=== PATIENT | male | born 1945 | race Caucasian/White ===

== ENCOUNTER 2018-10-05 23:00 | Emergency (ER) | payer SELFPAY, MEDICAID, MEDICARE | END 2018-10-05 23:30 | disposition left against medical advice (07) | LOC: E/R 23:00 | DX: Z53.21 Procedure and treatment not carried out due to patient leaving prior to being seen by health care provider (principal) ==

== ENCOUNTER 2018-11-20 11:46 | Inpatient (IN) | payer MEDICARE, MEDICAID ==
[2018-11-20 12:42] LABS: ADD MAN DIFF? NO
[2018-11-20 12:44] LABS: WHITE BLOOD COUNT 14.2 10^3/ul (4.8-10.8)
[2018-11-20 12:44] LABS: ABNORMAL IP MESSAGE 1; EOSINOPHILS # 0.1 10^3/ul (0.0-0.5); EOSINOPHILS % 0.5 % (0.0-7.0); HEMATOCRIT 33.2 % (42.0-52.0); HEMOGLOBIN 11.8 g/dl (14.0-18.0); LYMPHOCYTES # 1.5 10^3/ul (0.8-2.9); LYMPHOCYTES % 10.8 % (15.0-51.0); MEAN CORPUSCULAR HEMOGLOBIN 32.2 pg (29.0-33.0); MEAN CORPUSCULAR HGB CONC 35.5 g/dl (32.0-37.0); MEAN CORPUSCULAR VOLUME 90.5 fl (82.0-101.0); MEAN PLATELET VOLUME 10.2 fl (7.4-10.4); MONOCYTE # 1.2 10^3/ul (0.3-0.9); MONOCYTES % 8.2 % (0.0-11.0); NEUTROPHIL # 9.9 10^3/ul (1.6-7.5); NEUTROPHILS % 69.7 % (39.0-77.0); PLATELET COUNT 349 10^3/UL (140-415); POSITIVE DIFF @See below; RED BLOOD COUNT 3.67 10^6/ul (4.70-6.10); RED CELL DISTRIBUTION WIDTH 14.6 % (11.5-14.5)
[2018-11-20 12:53] LABS: HEMOGLOBIN A1C 6.1 % (0-5.9)
[2018-11-20] MEDS ORDERED: ACETAMINOPHEN 325 MG TAB PO ×2 (13:00→14:00)
[2018-11-20] MEDS ORDERED: ONDANSETRON 4 MG INJ IV ×2 (13:00→14:00)
[2018-11-20] MEDS ORDERED: ASPIRIN 325 MG TAB PO (13:00)
[2018-11-20 13:03] LABS: INR 1.07; PT RATIO 1.1
[2018-11-20 13:04] LABS: PARTIAL THROMBOPLASTIN TIME 26.8 Sec (23.0-35.0)
[2018-11-20 13:09] LABS: ANION GAP 11 (5-13); BLOOD UREA NITROGEN 84 mg/dl (7-20); CALCIUM 8.8 mg/dl (8.4-10.2); CARBON DIOXIDE 24 mmol/L (21-31); CHLORIDE 94 mmol/L (97-110); CHOLESTEROL 99 mg/dl (100-200); CREATININE 5.11 mg/dl (0.61-1.24); GLUCOSE 125 mg/dl (70-220); HDL CHOLESTEROL 14 mg/dl (31-75); LDL CHOLESTEROL,CALCULATED 49 mg/dl; SODIUM 129 mmol/L (135-144); TRIGLYCERIDES 180 mg/dl (0-149)
[2018-11-20 13:21] LABS: TROPONIN-I 0.025 ng/ml (0.000-0.120)
[2018-11-20] MEDS ORDERED: DEXTROSE 5%-0.45% NACL 1,000 ML IV (13:45)
[2018-11-20] MEDS: ASPIRIN 300 MG SUPP PR (13:52)
[2018-11-20] MEDS ORDERED: NACL 0.9% 3 ML SYG IV (14:00)
[2018-11-20 14:08] LABS: ANISOCYTOSIS 1+ (0-0); BAND NEUTROPHILS #M 0.2 10^3/ul (0.0-0.6); BAND NEUTROPHILS % (M) 2 % (0-4); LYMPHOCYTES #M 1.5 10^3/ul (0.8-2.9); LYMPHOCYTES % (M) 11 % (15-51); MONOCYTE #M 1.4 10^3/ul (0.3-0.9); MONOCYTES % (M) 10 % (0-11); MYELOCYTES #M 0.2 10^3/ul (0.0-0.0); MYELOCYTES % (M) 2 % (0-0); PLATELET ESTIMATE NORMAL; PROMYELOCYTES #M 0.1 10^3/ul (0-0); PROMYELOCYTES % (M) 1 % (0-0); REACTIVE LYMPHOCYTES #M 0.4 10^3/ul (0.0-0.0); REACTIVE LYMPHOCYTES% (M) 3 % (0-0); SEG NEUT #M 10.1 10^3/ul (1.6-7.5); SEGMENTED NEUTROPHILS (M) % 71 % (39-77); SMUDGE%M 46 % (0-0)
[2018-11-20 14:14] LABS: ADD UMIC YES; UR ASCORBIC ACID NEGATIVE (NEGATIVE); UR BACTERIA FEW /HPF (NONE SEEN); UR BILIRUBIN (Dip) NEGATIVE (NEGATIVE); UR BLOOD (Dip) 2+ mg/dL (NEGATIVE); UR CLARITY CLOUDY (CLEAR); UR COLOR YELLOW (YELLOW); UR GLUCOSE (Dip) NEGATIVE (NEGATIVE); UR KETONES (Dip) NEGATIVE (NEGATIVE); UR LEUKOCYTE ESTERASE (Dip) 3+ Leu/ul (NEGATIVE); UR NITRITE (Dip) NEGATIVE (NEGATIVE); UR RBC 14 /HPF (0-5); UR SPECIFIC GRAVITY (Dip) 1.006 (1.003-1.030); UR TOTAL PROTEIN (Dip) NEGATIVE (NEGATIVE); UR UROBILINOGEN (Dip) NEGATIVE (NEGATIVE); UR WBC > 182 /HPF (0-5)
[2018-11-20 14:39] LABS: AMPHETAMINE/METHAMPHETAMINE Negative (NEGATIVE); BARBITURATES Negative (NEGATIVE); BENZODIAZEPINES Negative (NEGATIVE); CANNABINOIDS Negative (NEGATIVE); COCAINE Negative (NEGATIVE); OPIATES Negative (NEGATIVE)
[2018-11-20] MEDS ORDERED: traMADol 50 MG TAB PO (15:00)
[2018-11-20 16:07] LABS: CREATINE KINASE 271 IU/L (23-200)
[2018-11-20] MEDS: CEFTRIAXONE 1 GM/50 ML (PMX) 50 ML IVPB (16:56)
[2018-11-20] MEDS: LACTATED RINGER'S 1,000 ML IV (16:57)
[2018-11-20] MEDS: RALTEGRAVIR 400 MG TAB PO ×2 (17:06→21:00)
[2018-11-20] MEDS: ABACAVIR/LAMIVUDINE TAB PO (17:06)
[2018-11-20] MEDS: DIVALPROEX (ER) 500 MG TAB PO (21:00)
[2018-11-20] MEDS: DOXAZOSIN 4 MG TAB PO (21:00)
[2018-11-20] MEDS ORDERED: RALTEGRAVIR 400 MG TAB PO (21:00)
[2018-11-20] MEDS: QUETIAPINE 25 MG TAB PO (21:00)
[2018-11-20] MEDS: ATORVASTATIN 10 MG TAB PO (21:00)
[2018-11-21] MEDS: LACTATED RINGER'S 1,000 ML IV ×3 (02:06→17:42)
[2018-11-21 06:10] LABS: ADD MAN DIFF? NO
[2018-11-21 06:23] LABS: ABNORMAL IP MESSAGE 1; BASOPHIL # 0.1 10^3/ul (0.0-0.1); BASOPHILS % 0.6 % (0.0-2.0); EOSINOPHILS % 0.1 % (0.0-7.0); HEMATOCRIT 35.2 % (42.0-52.0); HEMOGLOBIN 12.3 g/dl (14.0-18.0); LYMPHOCYTES # 1.4 10^3/ul (0.8-2.9); LYMPHOCYTES % 9.4 % (15.0-51.0); MEAN CORPUSCULAR HEMOGLOBIN 31.7 pg (29.0-33.0); MEAN CORPUSCULAR HGB CONC 34.9 g/dl (32.0-37.0); MEAN CORPUSCULAR VOLUME 90.7 fl (82.0-101.0); MONOCYTE # 1.3 10^3/ul (0.3-0.9); MONOCYTES % 8.3 % (0.0-11.0); NEUTROPHIL # 10.9 10^3/ul (1.6-7.5); NEUTROPHILS % 71.5 % (39.0-77.0); PLATELET COUNT 390 10^3/UL (140-415); POSITIVE DIFF @See below; RED BLOOD COUNT 3.88 10^6/ul (4.70-6.10); RED CELL DISTRIBUTION WIDTH 15.2 % (11.5-14.5)
[2018-11-21 06:23] LABS: WHITE BLOOD COUNT 15.3 10^3/ul (4.8-10.8)
[2018-11-21 06:54] LABS: ALANINE AMINOTRANSFERASE 60 IU/L (13-69); ALBUMIN 2.8 g/dl (3.3-4.9); ALBUMIN/GLOBULIN RATIO 0.75; ALKALINE PHOSPHATASE 130 IU/L (42-121); ANION GAP 14 (5-13); ASPARTATE AMINO TRANSFERASE 52 IU/L (15-46); BILIRUBIN,INDIRECT 0.5 mg/dl (0-1.1); BILIRUBIN,TOTAL 0.5 mg/dl (0.2-1.3); BLOOD UREA NITROGEN 81 mg/dl (7-20); CALCIUM 8.6 mg/dl (8.4-10.2); CARBON DIOXIDE 24 mmol/L (21-31); CHLORIDE 100 mmol/L (97-110); CREATININE 4.29 mg/dl (0.61-1.24); GLUCOSE 113 mg/dl (70-220); POTASSIUM 3.7 mmol/L (3.5-5.1); SODIUM 138 mmol/L (135-144); TOTAL PROTEIN 6.5 g/dl (6.1-8.1)
[2018-11-21 07:00] LABS: MAGNESIUM 3.1 mg/dl (1.7-2.5)
[2018-11-21 08:12] LABS: ANISOCYTOSIS 1+ (0-0); BAND NEUTROPHILS #M 0.1 10^3/ul (0.0-0.6); BAND NEUTROPHILS % (M) 1 % (0-4); EOSINOPHILS % (M) 1 % (0-7); LYMPHOCYTES % (M) 7 % (15-51); METAMYELOCYTES #M 0.7 10^3/ul (0.0-0.0); METAMYELOCYTES %M 5 % (0-0); MONOCYTE #M 1.3 10^3/ul (0.3-0.9); MONOCYTES % (M) 9 % (0-11); MYELOCYTES #M 0.1 10^3/ul (0.0-0.0); MYELOCYTES % (M) 1 % (0-0); PLATELET ESTIMATE NORMAL; REACTIVE LYMPHOCYTES #M 0.3 10^3/ul (0.0-0.0); REACTIVE LYMPHOCYTES% (M) 2 % (0-0); SEG NEUT #M 11.3 10^3/ul (1.6-7.5); SEGMENTED NEUTROPHILS (M) % 74 % (39-77); SMUDGE%M 2 % (0-0); TOXIC GRANULATION 1+ (0-0)
[2018-11-21] MEDS: DOCUSATE SODIUM 100 MG CAP PO (08:39)
[2018-11-21] MEDS: MAGNESIUM HYDROXIDE 30ML CUP PO (08:39)
[2018-11-21] MEDS: DUTASTERIDE 0.5 MG CAP PO (08:40)
[2018-11-21] MEDS: ASPIRIN 81 MG TAB PO (08:40)
[2018-11-21] MEDS: RALTEGRAVIR 400 MG TAB PO ×2 (08:40→21:08)
[2018-11-21] MEDS: ABACAVIR/LAMIVUDINE TAB PO (08:40)
[2018-11-21] MEDS: DIVALPROEX (ER) 500 MG TAB PO ×2 (08:40→21:10)
[2018-11-21] MEDS: QUETIAPINE 25 MG TAB PO ×2 (08:40→21:10)
[2018-11-21] MEDS: FAMOTIDINE 20 MG INJ IV (08:41)
[2018-11-21] MEDS ORDERED: ABACAVIR/LAMIVUDINE TAB PO (09:00)
[2018-11-21] MEDS ORDERED: ERTAPENEM SODIUM 1 GM in SOD CHLORIDE 0.9% 100 ML IVPB (13:30)
[2018-11-21 14:39] LABS: CREATININE,URINE RANDOM 40.15 mg/dl (20-370)
[2018-11-21 14:39] LABS: SODIUM,URINE RANDOM 49 mmol/L (30-90)
[2018-11-21] MEDS: ERTAPENEM SODIUM 0.5 GM in SOD CHLORIDE 0.9% 100 ML IVPB (16:18)
[2018-11-21] MEDS: ATORVASTATIN 10 MG TAB PO (21:08)
[2018-11-21] MEDS: DOXAZOSIN 4 MG TAB PO (21:10)
[2018-11-22] MEDS: LACTATED RINGER'S 1,000 ML IV ×2 (05:37→16:35)
[2018-11-22 06:53] LABS: ADD MAN DIFF? NO
[2018-11-22 06:54] LABS: ABNORMAL IP MESSAGE 1; BASOPHIL # 0.1 10^3/ul (0.0-0.1); BASOPHILS % 0.9 % (0.0-2.0); EOSINOPHILS # 0.1 10^3/ul (0.0-0.5); EOSINOPHILS % 0.4 % (0.0-7.0); HEMATOCRIT 30.3 % (42.0-52.0); HEMOGLOBIN 10.5 g/dl (14.0-18.0); LYMPHOCYTES # 1.1 10^3/ul (0.8-2.9); LYMPHOCYTES % 8.4 % (15.0-51.0); MEAN CORPUSCULAR HGB CONC 34.7 g/dl (32.0-37.0); MEAN CORPUSCULAR VOLUME 92.4 fl (82.0-101.0); MEAN PLATELET VOLUME 9.4 fl (7.4-10.4); MONOCYTE # 0.9 10^3/ul (0.3-0.9); MONOCYTES % 7.1 % (0.0-11.0); NEUTROPHILS % 74.9 % (39.0-77.0); PLATELET COUNT 381 10^3/UL (140-415); POSITIVE DIFF @See below; RED BLOOD COUNT 3.28 10^6/ul (4.70-6.10); RED CELL DISTRIBUTION WIDTH 15.2 % (11.5-14.5)
[2018-11-22 06:54] LABS: WHITE BLOOD COUNT 13.3 10^3/ul (4.8-10.8)
[2018-11-22 07:19] LABS: ALANINE AMINOTRANSFERASE 43 IU/L (13-69); ALBUMIN 2.6 g/dl (3.3-4.9); ALBUMIN/GLOBULIN RATIO 0.74; ALKALINE PHOSPHATASE 107 IU/L (42-121); ANION GAP 8 (5-13); ASPARTATE AMINO TRANSFERASE 48 IU/L (15-46); BILIRUBIN,INDIRECT 0.5 mg/dl (0-1.1); BILIRUBIN,TOTAL 0.5 mg/dl (0.2-1.3); BLOOD UREA NITROGEN 63 mg/dl (7-20); CALCIUM 8.4 mg/dl (8.4-10.2); CARBON DIOXIDE 26 mmol/L (21-31); CHLORIDE 101 mmol/L (97-110); CREATININE 3.35 mg/dl (0.61-1.24); GLUCOSE 104 mg/dl (70-220); MAGNESIUM 2.6 mg/dl (1.7-2.5); POTASSIUM 3.3 mmol/L (3.5-5.1); SODIUM 135 mmol/L (135-144); TOTAL PROTEIN 6.1 g/dl (6.1-8.1)
[2018-11-22] MEDS: QUETIAPINE 25 MG TAB PO ×2 (09:14→20:57)
[2018-11-22] MEDS: ABACAVIR/LAMIVUDINE TAB PO (09:14)
[2018-11-22] MEDS: ASPIRIN 81 MG TAB PO (09:14)
[2018-11-22] MEDS: RALTEGRAVIR 400 MG TAB PO ×2 (09:14→20:57)
[2018-11-22] MEDS: FAMOTIDINE 20 MG INJ IV (09:14)
[2018-11-22] MEDS: DIVALPROEX (ER) 500 MG TAB PO ×2 (09:14→20:57)
[2018-11-22] MEDS: DUTASTERIDE 0.5 MG CAP PO (09:14)
[2018-11-22 09:42] LABS: ANISOCYTOSIS 1+ (0-0); BURR CELLS 1+ (0-0); ERYTHROBLAST% (NRBC) (M) 1 % (0-0); LYMPHOCYTES #M 2.1 10^3/ul (0.8-2.9); LYMPHOCYTES % (M) 16 % (15-51); MONOCYTES % (M) 8 % (0-11); MYELOCYTES #M 0.1 10^3/ul (0.0-0.0); MYELOCYTES % (M) 1 % (0-0); PLATELET ESTIMATE NORMAL; POIKILOCYTOSIS 1+ (0-0); REACTIVE LYMPHOCYTES #M 0.1 10^3/ul (0.0-0.0); REACTIVE LYMPHOCYTES% (M) 1 % (0-0); SEGMENTED NEUTROPHILS (M) % 74 % (39-77); SMUDGE%M 8 % (0-0)
[2018-11-22] MEDS: POTASSIUM CHLORIDE 20 MEQ POWDER FOR ORAL SOLN PO (11:55)
[2018-11-22] MEDS: CEFTRIAXONE 1 GM/50 ML (PMX) 50 ML IVPB (16:34)
[2018-11-22] MEDS: ATORVASTATIN 10 MG TAB PO (20:58)
[2018-11-22] MEDS: DOXAZOSIN 4 MG TAB PO (20:58)
[2018-11-22] MEDS: CEPASTAT LOZENGE MT (21:06)
[2018-11-23] MEDS: LACTATED RINGER'S 1,000 ML IV (02:29)
[2018-11-23] MEDS: CEPASTAT LOZENGE MT ×2 (04:24→14:39)
[2018-11-23 06:32] LABS: ADD MAN DIFF? NO
[2018-11-23 06:36] LABS: WHITE BLOOD COUNT 12.8 10^3/ul (4.8-10.8)
[2018-11-23 06:36] LABS: ABNORMAL IP MESSAGE 1; BASOPHIL # 0.1 10^3/ul (0.0-0.1); BASOPHILS % 0.6 % (0.0-2.0); EOSINOPHILS # 0.1 10^3/ul (0.0-0.5); EOSINOPHILS % 1.1 % (0.0-7.0); HEMATOCRIT 30.8 % (42.0-52.0); HEMOGLOBIN 10.3 g/dl (14.0-18.0); LYMPHOCYTES # 1.8 10^3/ul (0.8-2.9); LYMPHOCYTES % 13.9 % (15.0-51.0); MEAN CORPUSCULAR HEMOGLOBIN 31.3 pg (29.0-33.0); MEAN CORPUSCULAR HGB CONC 33.4 g/dl (32.0-37.0); MEAN CORPUSCULAR VOLUME 93.6 fl (82.0-101.0); MEAN PLATELET VOLUME 9.3 fl (7.4-10.4); MONOCYTE # 0.9 10^3/ul (0.3-0.9); MONOCYTES % 7.2 % (0.0-11.0); NEUTROPHIL # 8.8 10^3/ul (1.6-7.5); NEUTROPHILS % 68.3 % (39.0-77.0); PLATELET COUNT 403 10^3/UL (140-415); POSITIVE DIFF @See below; RED BLOOD COUNT 3.29 10^6/ul (4.70-6.10); RED CELL DISTRIBUTION WIDTH 15.6 % (11.5-14.5)
[2018-11-23 07:08] LABS: ALANINE AMINOTRANSFERASE 69 IU/L (13-69); ALBUMIN 2.5 g/dl (3.3-4.9); ALBUMIN/GLOBULIN RATIO 0.71; ALKALINE PHOSPHATASE 108 IU/L (42-121); ANION GAP 6 (5-13); ASPARTATE AMINO TRANSFERASE 95 IU/L (15-46); BILIRUBIN,INDIRECT 0.4 mg/dl (0-1.1); BILIRUBIN,TOTAL 0.4 mg/dl (0.2-1.3); BLOOD UREA NITROGEN 47 mg/dl (7-20); CALCIUM 8.2 mg/dl (8.4-10.2); CARBON DIOXIDE 29 mmol/L (21-31); CHLORIDE 103 mmol/L (97-110); GLUCOSE 116 mg/dl (70-220); MAGNESIUM 2.2 mg/dl (1.7-2.5); POTASSIUM 3.8 mmol/L (3.5-5.1); SODIUM 138 mmol/L (135-144)
[2018-11-23 08:07] LABS: ANISOCYTOSIS 1+ (0-0); BAND NEUTROPHILS #M 0.6 10^3/ul (0.0-0.6); BAND NEUTROPHILS % (M) 5 % (0-4); BURR CELLS 2+ (0-0); LYMPHOCYTES % (M) 16 % (15-51); METAMYELOCYTES #M 0.2 10^3/ul (0.0-0.0); METAMYELOCYTES %M 2 % (0-0); MONOCYTE #M 0.7 10^3/ul (0.3-0.9); MONOCYTES % (M) 6 % (0-11); PLATELET ESTIMATE NORMAL; POIKILOCYTOSIS 2+ (0-0); POLYCHROMASIA 3+ (0-0); PROMYELOCYTES #M 0.1 10^3/ul (0-0); PROMYELOCYTES % (M) 1 % (0-0); SEGMENTED NEUTROPHILS (M) % 70 % (39-77); SMUDGE%M 1 % (0-0)
[2018-11-23] MEDS: ASPIRIN 81 MG TAB PO (08:07)
[2018-11-23] MEDS: ABACAVIR/LAMIVUDINE TAB PO (08:07)
[2018-11-23] MEDS: DUTASTERIDE 0.5 MG CAP PO (08:07)
[2018-11-23] MEDS: FAMOTIDINE 20 MG TAB PO (08:07)
[2018-11-23] MEDS: RALTEGRAVIR 400 MG TAB PO ×2 (08:07→21:56)
[2018-11-23] MEDS: DIVALPROEX (ER) 500 MG TAB PO ×2 (08:08→21:56)
[2018-11-23 10:12] LABS: LYMPHOCYTE - % CD4 (HELPER) 26 % (30-61); LYMPHOCYTE - %CD8 (SUPPRESSOR) 41 % (12-42); LYMPHOCYTE - ABSOLUTE 1460 cells/uL (850-3900); LYMPHOCYTE - ABSOLUTE CD4 381 cells/uL (490-1740); LYMPHOCYTE - ABSOLUTE CD8 602 cells/uL (180-1170); LYMPHOCYTE - CD4/CD8 RATIO 0.63 (0.86-5.00)
[2018-11-23] MEDS: CEFTRIAXONE 1 GM/50 ML (PMX) 50 ML IVPB (16:17)
[2018-11-23] MEDS: DOXAZOSIN 4 MG TAB PO (21:56)
[2018-11-23] MEDS: ATORVASTATIN 10 MG TAB PO (21:56)
[2018-11-23] MEDS: QUETIAPINE 25 MG TAB PO (21:56)
[2018-11-24 05:52] LABS: ADD MAN DIFF? NO
[2018-11-24 05:56] LABS: ABNORMAL IP MESSAGE 1; BASOPHIL # 0.1 10^3/ul (0.0-0.1); BASOPHILS % 0.6 % (0.0-2.0); EOSINOPHILS # 0.2 10^3/ul (0.0-0.5); EOSINOPHILS % 1.3 % (0.0-7.0); HEMATOCRIT 29.8 % (42.0-52.0); HEMOGLOBIN 9.9 g/dl (14.0-18.0); LYMPHOCYTES # 2.1 10^3/ul (0.8-2.9); LYMPHOCYTES % 17.4 % (15.0-51.0); MEAN CORPUSCULAR HEMOGLOBIN 31.7 pg (29.0-33.0); MEAN CORPUSCULAR HGB CONC 33.2 g/dl (32.0-37.0); MEAN CORPUSCULAR VOLUME 95.5 fl (82.0-101.0); MEAN PLATELET VOLUME 9.1 fl (7.4-10.4); MONOCYTES % 8.5 % (0.0-11.0); NEUTROPHIL # 7.9 10^3/ul (1.6-7.5); NEUTROPHILS % 65.8 % (39.0-77.0); PLATELET COUNT 402 10^3/UL (140-415); POSITIVE DIFF @See below; RED BLOOD COUNT 3.12 10^6/ul (4.70-6.10); RED CELL DISTRIBUTION WIDTH 15.8 % (11.5-14.5)
[2018-11-24 06:21] LABS: ALANINE AMINOTRANSFERASE 66 IU/L (13-69); ALBUMIN 2.6 g/dl (3.3-4.9); ALBUMIN/GLOBULIN RATIO 0.72; ALKALINE PHOSPHATASE 96 IU/L (42-121); ANION GAP 6 (5-13); ASPARTATE AMINO TRANSFERASE 81 IU/L (15-46); BILIRUBIN,INDIRECT 0.4 mg/dl (0-1.1); BILIRUBIN,TOTAL 0.4 mg/dl (0.2-1.3); BLOOD UREA NITROGEN 37 mg/dl (7-20); CALCIUM 8.3 mg/dl (8.4-10.2); CARBON DIOXIDE 31 mmol/L (21-31); CHLORIDE 103 mmol/L (97-110); CREATININE 2.39 mg/dl (0.61-1.24); GLUCOSE 101 mg/dl (70-220); MAGNESIUM 1.8 mg/dl (1.7-2.5); POTASSIUM 3.8 mmol/L (3.5-5.1); SODIUM 140 mmol/L (135-144); TOTAL PROTEIN 6.2 g/dl (6.1-8.1)
[2018-11-24 07:48] LABS: ANISOCYTOSIS 1+ (0-0); LYMPHOCYTES #M 1.5 10^3/ul (0.8-2.9); LYMPHOCYTES % (M) 13 % (15-51); METAMYELOCYTES #M 0.1 10^3/ul (0.0-0.0); METAMYELOCYTES %M 1 % (0-0); MONOCYTE #M 0.7 10^3/ul (0.3-0.9); MONOCYTES % (M) 6 % (0-11); MYELOCYTES #M 0.2 10^3/ul (0.0-0.0); MYELOCYTES % (M) 2 % (0-0); PLATELET ESTIMATE NORMAL; REACTIVE LYMPHOCYTES #M 0.3 10^3/ul (0.0-0.0); REACTIVE LYMPHOCYTES% (M) 3 % (0-0); SEGMENTED NEUTROPHILS (M) % 75 % (39-77); SMUDGE%M 17 % (0-0)
[2018-11-24] MEDS: ASPIRIN 81 MG TAB PO (09:11)
[2018-11-24] MEDS: RALTEGRAVIR 400 MG TAB PO ×2 (09:11→20:25)
[2018-11-24] MEDS: DIVALPROEX (ER) 500 MG TAB PO ×2 (09:11→20:24)
[2018-11-24] MEDS: DUTASTERIDE 0.5 MG CAP PO (09:11)
[2018-11-24] MEDS: FAMOTIDINE 20 MG TAB PO (09:11)
[2018-11-24] MEDS: MAGNESIUM HYDROXIDE 30ML CUP PO (12:00)
[2018-11-24] MEDS: ABACAVIR/LAMIVUDINE TAB PO (13:26)
[2018-11-24] MEDS: SOD CHLORIDE 0.9% 1,000 ML IV (14:30)
[2018-11-24] MEDS: CEFTRIAXONE 1 GM/50 ML (PMX) 50 ML IVPB (17:59)
[2018-11-24] MEDS: ATORVASTATIN 10 MG TAB PO (20:24)
[2018-11-24] MEDS: QUETIAPINE 25 MG TAB PO (20:25)
[2018-11-24] MEDS: DOXAZOSIN 4 MG TAB PO (20:26)
[2018-11-25 06:11] LABS: ANION GAP 8 (5-13); BLOOD UREA NITROGEN 30 mg/dl (7-20); CALCIUM 8.4 mg/dl (8.4-10.2); CARBON DIOXIDE 30 mmol/L (21-31); CHLORIDE 104 mmol/L (97-110); CREATININE 2.24 mg/dl (0.61-1.24); GLUCOSE 107 mg/dl (70-220); MAGNESIUM 1.6 mg/dl (1.7-2.5); PHOSPHORUS 4.1 mg/dl (2.5-4.9); SODIUM 142 mmol/L (135-144)
[2018-11-25] MEDS: DUTASTERIDE 0.5 MG CAP PO (09:17)
[2018-11-25] MEDS: ABACAVIR/LAMIVUDINE TAB PO (09:17)
[2018-11-25] MEDS: ASPIRIN 81 MG TAB PO (09:17)
[2018-11-25] MEDS: DIVALPROEX (ER) 500 MG TAB PO ×2 (09:18→20:40)
[2018-11-25] MEDS: RALTEGRAVIR 400 MG TAB PO ×2 (09:18→20:40)
[2018-11-25] MEDS: FAMOTIDINE 20 MG TAB PO (09:18)
[2018-11-25] MEDS: MAGNESIUM SULFATE 2 GM/50 ML 50 ML IVPB (10:38)
[2018-11-25] MEDS: CEFTRIAXONE 1 GM/50 ML (PMX) 50 ML IVPB (16:34)
[2018-11-25] MEDS: ATORVASTATIN 10 MG TAB PO (20:41)
[2018-11-25] MEDS: QUETIAPINE 25 MG TAB PO (20:41)
[2018-11-25] MEDS: DOXAZOSIN 4 MG TAB PO (20:41)
== END 2018-11-25 21:50 | DRG 689 ==
LOC: TEL 11-21 20:27 → 2NE 11-23 16:59 → E/R 11:46 → TEL 11-22 15:39
DX: N13.6 Pyonephrosis (principal); G92 Toxic encephalopathy; R65.10 Systemic inflammatory response syndrome (SIRS) of non-infectious origin without acute organ dysfunction; E87.1 Hypo-osmolality and hyponatremia; N17.9 Acute kidney failure, unspecified; N18.9 Chronic kidney disease, unspecified; I12.9 Hypertensive chronic kidney disease with stage 1 through stage 4 chronic kidney disease, or unspecified chronic kidney disease; I25.10 Atherosclerotic heart disease of native coronary artery without angina pectoris; N40.0 Benign prostatic hyperplasia without lower urinary tract symptoms; R47.81 Slurred speech; J02.9 Acute pharyngitis, unspecified; F10.20 Alcohol dependence, uncomplicated; R29.810 Facial weakness; D63.8 Anemia in other chronic diseases classified elsewhere; E83.42 Hypomagnesemia; Z87.891 Personal history of nicotine dependence
CPT/HCPCS: 36415; 70450; 70551; 71045; 74176; 76775; 80048; 80053; 80061; 80307; 81001; 82550; 83036; 83735; 84100; 84155; 84300; 84484; 85025; 85610; 85730; 86360; 87086; 87536; 89190; 92610; 93005; 93306; 93880; 97110; 97116; 97162; 97165; 97530; 97535; 99285-25

== ENCOUNTER 2018-11-25 22:00 | Inpatient (IN) | payer MEDICARE, OTHER, MEDICAID ==
[2018-11-25] MEDS ORDERED: ONDANSETRON 4 MG INJ IV (23:30)
[2018-11-26] MEDS ORDERED: LACTULOSE 30ML CUP PO
[2018-11-26] MEDS ORDERED: MAGNESIUM HYDROXIDE 30ML CUP PO
[2018-11-26] MEDS ORDERED: BISACODYL 10 MG SUPP PR
[2018-11-26] MEDS ORDERED: CEPASTAT LOZENGE MT
[2018-11-26] MEDS ORDERED: DOCUSATE SODIUM 100 MG CAP PO
[2018-11-26 00:40] LABS: ADD UMIC YES; UR ASCORBIC ACID NEGATIVE (NEGATIVE); UR BACTERIA FEW /HPF (NONE SEEN); UR BILIRUBIN (Dip) NEGATIVE (NEGATIVE); UR BLOOD (Dip) 3+ mg/dL (NEGATIVE); UR CLARITY CLEAR (CLEAR); UR COLOR STRAW (YELLOW); UR GLUCOSE (Dip) NEGATIVE (NEGATIVE); UR KETONES (Dip) NEGATIVE (NEGATIVE); UR LEUKOCYTE ESTERASE (Dip) TRACE Leu/ul (NEGATIVE); UR NITRITE (Dip) NEGATIVE (NEGATIVE); UR RBC 6 /HPF (0-5); UR SPECIFIC GRAVITY (Dip) 1.005 (1.003-1.030); UR TOTAL PROTEIN (Dip) NEGATIVE (NEGATIVE); UR UROBILINOGEN (Dip) NEGATIVE (NEGATIVE); UR WBC 9 /HPF (0-5)
[2018-11-26] MEDS ORDERED: NACL 0.9% 3 ML SYG IV (01:30)
[2018-11-26 07:25] LABS: ADD MAN DIFF? NO
[2018-11-26 07:28] LABS: BASOPHILS % 0.2 % (0.0-2.0); EOSINOPHILS # 0.1 10^3/ul (0.0-0.5); EOSINOPHILS % 0.7 % (0.0-7.0); HEMATOCRIT 27.1 % (42.0-52.0); HEMOGLOBIN 9.1 g/dl (14.0-18.0); LYMPHOCYTES % 14.1 % (15.0-51.0); MEAN CORPUSCULAR HEMOGLOBIN 31.7 pg (29.0-33.0); MEAN CORPUSCULAR HGB CONC 33.6 g/dl (32.0-37.0); MEAN CORPUSCULAR VOLUME 94.4 fl (82.0-101.0); MEAN PLATELET VOLUME 9.2 fl (7.4-10.4); MONOCYTE # 0.9 10^3/ul (0.3-0.9); MONOCYTES % 6.7 % (0.0-11.0); NEUTROPHIL # 10.7 10^3/ul (1.6-7.5); NEUTROPHILS % 76.5 % (39.0-77.0); PLATELET COUNT 348 10^3/UL (140-415); RED BLOOD COUNT 2.87 10^6/ul (4.70-6.10); RED CELL DISTRIBUTION WIDTH 15.6 % (11.5-14.5)
[2018-11-26 07:52] LABS: ALANINE AMINOTRANSFERASE 39 IU/L (13-69); ALBUMIN 2.6 g/dl (3.3-4.9); ALBUMIN/GLOBULIN RATIO 0.66; ALKALINE PHOSPHATASE 82 IU/L (42-121); ANION GAP 5 (5-13); ASPARTATE AMINO TRANSFERASE 40 IU/L (15-46); BILIRUBIN,INDIRECT 0.3 mg/dl (0-1.1); BILIRUBIN,TOTAL 0.3 mg/dl (0.2-1.3); BLOOD UREA NITROGEN 28 mg/dl (7-20); CALCIUM 8.1 mg/dl (8.4-10.2); CARBON DIOXIDE 30 mmol/L (21-31); CHLORIDE 104 mmol/L (97-110); CREATININE 2.25 mg/dl (0.61-1.24); GLUCOSE 104 mg/dl (70-220); POTASSIUM 4.2 mmol/L (3.5-5.1); SODIUM 139 mmol/L (135-144); TOTAL PROTEIN 6.5 g/dl (6.1-8.1)
[2018-11-26] MEDS ORDERED: CEFTRIAXONE 1 GM/50 ML (PMX) 50 ML IVPB (09:00)
[2018-11-26] MEDS: RALTEGRAVIR 400 MG TAB PO ×2 (09:52→20:58)
[2018-11-26] MEDS: FAMOTIDINE 20 MG TAB PO (09:53)
[2018-11-26] MEDS: DUTASTERIDE 0.5 MG CAP PO (09:53)
[2018-11-26] MEDS: DIVALPROEX (ER) 500 MG TAB PO ×2 (13:11→20:57)
[2018-11-26] MEDS: ABACAVIR/LAMIVUDINE TAB PO (13:11)
[2018-11-26 14:41] LABS: B-TYPE NATRIURETIC PEPTIDE 3480 PG/ML (0-450)
[2018-11-26] MEDS: CEFTRIAXONE 1 GM/50 ML (PMX) 50 ML IVPB (15:55)
[2018-11-26] MEDS: ATORVASTATIN 10 MG TAB PO (20:58)
[2018-11-26] MEDS: QUETIAPINE 25 MG TAB PO (20:58)
[2018-11-26] MEDS: SENNA TAB PO (20:58)
[2018-11-26] MEDS: DOXAZOSIN 4 MG TAB PO (21:42)
[2018-11-27 07:13] LABS: ADD MAN DIFF? NO
[2018-11-27 07:18] LABS: BASOPHILS % 0.2 % (0.0-2.0); EOSINOPHILS # 0.1 10^3/ul (0.0-0.5); EOSINOPHILS % 0.6 % (0.0-7.0); HEMATOCRIT 27.9 % (42.0-52.0); HEMOGLOBIN 9.2 g/dl (14.0-18.0); LYMPHOCYTES # 2.4 10^3/ul (0.8-2.9); LYMPHOCYTES % 20.4 % (15.0-51.0); MEAN CORPUSCULAR HEMOGLOBIN 32.1 pg (29.0-33.0); MEAN CORPUSCULAR VOLUME 97.2 fl (82.0-101.0); MEAN PLATELET VOLUME 9.7 fl (7.4-10.4); MONOCYTE # 0.8 10^3/ul (0.3-0.9); MONOCYTES % 6.8 % (0.0-11.0); NEUTROPHIL # 8.4 10^3/ul (1.6-7.5); NEUTROPHILS % 70.5 % (39.0-77.0); PLATELET COUNT 313 10^3/UL (140-415); RED BLOOD COUNT 2.87 10^6/ul (4.70-6.10); RED CELL DISTRIBUTION WIDTH 15.5 % (11.5-14.5)
[2018-11-27 07:18] LABS: WHITE BLOOD COUNT 11.8 10^3/ul (4.8-10.8)
[2018-11-27 07:35] LABS: ANION GAP 9 (5-13); BLOOD UREA NITROGEN 25 mg/dl (7-20); CALCIUM 8.5 mg/dl (8.4-10.2); CARBON DIOXIDE 27 mmol/L (21-31); CHLORIDE 105 mmol/L (97-110); CREATININE 2.15 mg/dl (0.61-1.24); GLUCOSE 90 mg/dl (70-220); MAGNESIUM 1.7 mg/dl (1.7-2.5); PHOSPHORUS 4.9 mg/dl (2.5-4.9); POTASSIUM 4.8 mmol/L (3.5-5.1); SODIUM 141 mmol/L (135-144)
[2018-11-27] MEDS: FAMOTIDINE 20 MG TAB PO (09:14)
[2018-11-27] MEDS: METOPROLOL 25 MG TAB PO (09:14)
[2018-11-27] MEDS: DUTASTERIDE 0.5 MG CAP PO (09:14)
[2018-11-27] MEDS: DIVALPROEX (ER) 500 MG TAB PO ×2 (09:15→20:27)
[2018-11-27] MEDS: RALTEGRAVIR 400 MG TAB PO ×2 (09:15→20:27)
[2018-11-27] MEDS: ABACAVIR/LAMIVUDINE TAB PO (09:15)
[2018-11-27] MEDS: CEFTRIAXONE 1 GM/50 ML (PMX) 50 ML IVPB (15:48)
[2018-11-27] MEDS: ATORVASTATIN 10 MG TAB PO (20:27)
[2018-11-27] MEDS: DOXAZOSIN 4 MG TAB PO (20:30)
[2018-11-27] MEDS: QUETIAPINE 25 MG TAB PO (20:30)
[2018-11-27] MEDS: SENNA TAB PO (21:00)
[2018-11-28 07:09] LABS: ADD MAN DIFF? NO
[2018-11-28 07:11] LABS: WHITE BLOOD COUNT 11.3 10^3/ul (4.8-10.8)
[2018-11-28 07:11] LABS: BASOPHILS % 0.4 % (0.0-2.0); EOSINOPHILS # 0.1 10^3/ul (0.0-0.5); EOSINOPHILS % 0.8 % (0.0-7.0); HEMATOCRIT 27.4 % (42.0-52.0); HEMOGLOBIN 8.9 g/dl (14.0-18.0); LYMPHOCYTES # 2.3 10^3/ul (0.8-2.9); LYMPHOCYTES % 20.1 % (15.0-51.0); MEAN CORPUSCULAR HEMOGLOBIN 31.4 pg (29.0-33.0); MEAN CORPUSCULAR HGB CONC 32.5 g/dl (32.0-37.0); MEAN CORPUSCULAR VOLUME 96.8 fl (82.0-101.0); MEAN PLATELET VOLUME 9.3 fl (7.4-10.4); MONOCYTE # 0.8 10^3/ul (0.3-0.9); MONOCYTES % 6.8 % (0.0-11.0); NEUTROPHILS % 70.8 % (39.0-77.0); PLATELET COUNT 278 10^3/UL (140-415); RED BLOOD COUNT 2.83 10^6/ul (4.70-6.10); RED CELL DISTRIBUTION WIDTH 15.6 % (11.5-14.5)
[2018-11-28 08:09] LABS: ANION GAP 7 (5-13); BLOOD UREA NITROGEN 23 mg/dl (7-20); CALCIUM 8.3 mg/dl (8.4-10.2); CARBON DIOXIDE 26 mmol/L (21-31); CHLORIDE 106 mmol/L (97-110); CREATININE 2.18 mg/dl (0.61-1.24); GLUCOSE 95 mg/dl (70-220); MAGNESIUM 1.6 mg/dl (1.7-2.5); PHOSPHORUS 4.4 mg/dl (2.5-4.9); POTASSIUM 4.5 mmol/L (3.5-5.1); SODIUM 139 mmol/L (135-144)
[2018-11-28] MEDS: DIVALPROEX (ER) 500 MG TAB PO ×2 (09:11→21:05)
[2018-11-28] MEDS: FAMOTIDINE 20 MG TAB PO (09:11)
[2018-11-28] MEDS: DUTASTERIDE 0.5 MG CAP PO (09:11)
[2018-11-28] MEDS: RALTEGRAVIR 400 MG TAB PO ×2 (09:11→21:07)
[2018-11-28] MEDS: METOPROLOL 25 MG TAB PO (09:11)
[2018-11-28] MEDS: MAGNESIUM OXIDE 400 MG TAB PO (10:36)
[2018-11-28] MEDS: SOD CHLORIDE 0.9% 1,000 ML IV (10:37)
[2018-11-28] MEDS: ABACAVIR/LAMIVUDINE TAB PO (10:37)
[2018-11-28] MEDS: AMIODARONE 200 MG TAB PO (10:43)
[2018-11-28] MEDS: metroNIDAZOLE 500 MG/NS (PMX) 100 ML IVPB ×2 (13:26→21:07)
[2018-11-28] MEDS: APIXABAN 5 MG TABLET PO ×2 (13:26→21:06)
[2018-11-28] MEDS: CEFTRIAXONE 1 GM/50 ML (PMX) 50 ML IVPB (16:36)
[2018-11-28] MEDS ORDERED: LACTOBACILLUS RHAMNOSUS CAP PO (21:00)
[2018-11-28] MEDS ORDERED: SPECIAL NON-STANDARD MEDICATION PO (21:00)
[2018-11-28] MEDS: SENNA TAB PO (21:00)
[2018-11-28] MEDS: ATORVASTATIN 10 MG TAB PO (21:05)
[2018-11-28] MEDS: LACTOBACILLUS RHAMNOSUS CAP PO (21:06)
[2018-11-28] MEDS: DOXYCYCLINE 100 MG TAB PO (21:06)
[2018-11-28] MEDS: DOXAZOSIN 4 MG TAB PO (21:06)
[2018-11-28] MEDS: QUETIAPINE 25 MG TAB PO (21:06)
[2018-11-29] MEDS: SOD CHLORIDE 0.9% 1,000 ML IV ×2 (00:18→02:17)
[2018-11-29] MEDS: metroNIDAZOLE 500 MG/NS (PMX) 100 ML IVPB ×2 (06:15→12:49)
[2018-11-29 06:37] LABS: ADD MAN DIFF? NO
[2018-11-29 06:41] LABS: BASOPHILS % 0.5 % (0.0-2.0); EOSINOPHILS # 0.1 10^3/ul (0.0-0.5); EOSINOPHILS % 1.3 % (0.0-7.0); HEMATOCRIT 26.3 % (42.0-52.0); HEMOGLOBIN 8.5 g/dl (14.0-18.0); MEAN CORPUSCULAR HEMOGLOBIN 31.8 pg (29.0-33.0); MEAN CORPUSCULAR HGB CONC 32.3 g/dl (32.0-37.0); MEAN CORPUSCULAR VOLUME 98.5 fl (82.0-101.0); MEAN PLATELET VOLUME 9.1 fl (7.4-10.4); MONOCYTE # 0.6 10^3/ul (0.3-0.9); MONOCYTES % 7.2 % (0.0-11.0); NEUTROPHIL # 5.5 10^3/ul (1.6-7.5); NEUTROPHILS % 66.2 % (39.0-77.0); PLATELET COUNT 252 10^3/UL (140-415); RED BLOOD COUNT 2.67 10^6/ul (4.70-6.10); RED CELL DISTRIBUTION WIDTH 15.3 % (11.5-14.5)
[2018-11-29 06:41] LABS: WHITE BLOOD COUNT 8.3 10^3/ul (4.8-10.8)
[2018-11-29 07:02] LABS: ANION GAP 8 (5-13); BLOOD UREA NITROGEN 21 mg/dl (7-20); CALCIUM 8.4 mg/dl (8.4-10.2); CARBON DIOXIDE 25 mmol/L (21-31); CHLORIDE 109 mmol/L (97-110); CREATININE 2.32 mg/dl (0.61-1.24); GLUCOSE 96 mg/dl (70-220); MAGNESIUM 1.6 mg/dl (1.7-2.5); PHOSPHORUS 4.1 mg/dl (2.5-4.9); POTASSIUM 4.3 mmol/L (3.5-5.1); SODIUM 142 mmol/L (135-144)
[2018-11-29] MEDS: METOPROLOL 25 MG TAB PO (08:36)
[2018-11-29] MEDS: FAMOTIDINE 20 MG TAB PO (09:08)
[2018-11-29] MEDS: DIVALPROEX (ER) 500 MG TAB PO ×3 (09:08→20:47)
[2018-11-29] MEDS: DUTASTERIDE 0.5 MG CAP PO (09:08)
[2018-11-29] MEDS: LACTOBACILLUS RHAMNOSUS CAP PO ×2 (09:09→20:47)
[2018-11-29] MEDS: ABACAVIR/LAMIVUDINE TAB PO (09:09)
[2018-11-29] MEDS: DOXYCYCLINE 100 MG TAB PO (09:09)
[2018-11-29] MEDS: AMIODARONE 200 MG TAB PO (09:09)
[2018-11-29] MEDS: RALTEGRAVIR 400 MG TAB PO ×2 (09:09→20:30)
[2018-11-29] MEDS: APIXABAN 5 MG TABLET PO ×3 (09:09→20:48)
[2018-11-29] MEDS: MAGNESIUM SULFATE 2 GM/50 ML 50 ML IVPB ×2 (09:10→10:45)
[2018-11-29] MEDS: VANCOMYCIN HCL 250 MG/5ML POSYG PO ×4 (15:00→23:41)
[2018-11-29] MEDS: ATORVASTATIN 10 MG TAB PO (20:30)
[2018-11-29] MEDS: QUETIAPINE 25 MG TAB PO (20:30)
[2018-11-29] MEDS: DOXAZOSIN 4 MG TAB PO (20:46)
[2018-11-29] MEDS: SENNA TAB PO (20:53)
[2018-11-29] MEDS: metroNIDAZOLE 500 MG TAB PO (21:50)
[2018-11-30] MEDS: VANCOMYCIN HCL 250 MG/5ML POSYG PO ×4 (05:51→23:48)
[2018-11-30] MEDS: metroNIDAZOLE 500 MG TAB PO ×3 (05:51→21:55)
[2018-11-30 07:19] LABS: ADD MAN DIFF? NO
[2018-11-30 07:23] LABS: BASOPHIL # 0.1 10^3/ul (0.0-0.1); BASOPHILS % 0.6 % (0.0-2.0); EOSINOPHILS # 0.1 10^3/ul (0.0-0.5); EOSINOPHILS % 1.2 % (0.0-7.0); HEMATOCRIT 26.2 % (42.0-52.0); HEMOGLOBIN 8.7 g/dl (14.0-18.0); LYMPHOCYTES # 2.2 10^3/ul (0.8-2.9); MEAN CORPUSCULAR HEMOGLOBIN 32.3 pg (29.0-33.0); MEAN CORPUSCULAR HGB CONC 33.2 g/dl (32.0-37.0); MEAN CORPUSCULAR VOLUME 97.4 fl (82.0-101.0); MEAN PLATELET VOLUME 9.5 fl (7.4-10.4); MONOCYTE # 0.5 10^3/ul (0.3-0.9); MONOCYTES % 6.8 % (0.0-11.0); NEUTROPHIL # 4.9 10^3/ul (1.6-7.5); NEUTROPHILS % 62.8 % (39.0-77.0); PLATELET COUNT 268 10^3/UL (140-415); RED BLOOD COUNT 2.69 10^6/ul (4.70-6.10); RED CELL DISTRIBUTION WIDTH 15.1 % (11.5-14.5)
[2018-11-30 07:23] LABS: WHITE BLOOD COUNT 7.8 10^3/ul (4.8-10.8)
[2018-11-30 07:42] LABS: ANION GAP 8 (5-13); BLOOD UREA NITROGEN 20 mg/dl (7-20); CALCIUM 8.8 mg/dl (8.4-10.2); CARBON DIOXIDE 25 mmol/L (21-31); CHLORIDE 109 mmol/L (97-110); CREATININE 2.24 mg/dl (0.61-1.24); GLUCOSE 98 mg/dl (70-220); MAGNESIUM 1.9 mg/dl (1.7-2.5); PHOSPHORUS 4.2 mg/dl (2.5-4.9); POTASSIUM 4.2 mmol/L (3.5-5.1); SODIUM 142 mmol/L (135-144)
[2018-11-30] MEDS: FAMOTIDINE 20 MG TAB PO (08:24)
[2018-11-30] MEDS: AMIODARONE 200 MG TAB PO ×2 (08:25→20:51)
[2018-11-30] MEDS: LACTOBACILLUS RHAMNOSUS CAP PO ×2 (08:25→20:50)
[2018-11-30] MEDS: DUTASTERIDE 0.5 MG CAP PO (08:25)
[2018-11-30] MEDS: METOPROLOL 25 MG TAB PO ×2 (08:26→20:52)
[2018-11-30] MEDS: RALTEGRAVIR 400 MG TAB PO ×2 (08:26→20:50)
[2018-11-30] MEDS: ABACAVIR/LAMIVUDINE TAB PO (08:26)
[2018-11-30] MEDS: DIVALPROEX (ER) 500 MG TAB PO ×2 (08:27→20:50)
[2018-11-30] MEDS: APIXABAN 5 MG TABLET PO ×2 (08:27→20:51)
[2018-11-30] MEDS: ACETAMINOPHEN 325 MG TAB PO ×2 (15:45→22:56)
[2018-11-30] MEDS: ATORVASTATIN 10 MG TAB PO (20:50)
[2018-11-30] MEDS: QUETIAPINE 25 MG TAB PO (20:50)
[2018-11-30] MEDS ORDERED: DOXAZOSIN 4 MG TAB PO (21:00)
[2018-11-30] MEDS: SENNA TAB PO (21:00)
[2018-12-01] MEDS: metroNIDAZOLE 500 MG TAB PO ×3 (05:47→21:39)
[2018-12-01] MEDS: VANCOMYCIN HCL 250 MG/5ML POSYG PO ×4 (05:47→23:27)
[2018-12-01 06:12] LABS: WEST NILE VIRUS ANTIBODY (IGG) <1.30 index; WEST NILE VIRUS ANTIBODY (IGM) <0.90 index
[2018-12-01] MEDS: ABACAVIR/LAMIVUDINE TAB PO (08:15)
[2018-12-01] MEDS: APIXABAN 5 MG TABLET PO ×2 (08:16→20:53)
[2018-12-01] MEDS: RALTEGRAVIR 400 MG TAB PO ×2 (08:16→20:53)
[2018-12-01] MEDS: LACTOBACILLUS RHAMNOSUS CAP PO ×2 (08:16→20:53)
[2018-12-01] MEDS: FAMOTIDINE 20 MG TAB PO (08:16)
[2018-12-01] MEDS: AMIODARONE 200 MG TAB PO ×2 (08:17→20:59)
[2018-12-01] MEDS: METOPROLOL 25 MG TAB PO ×2 (08:18→21:06)
[2018-12-01] MEDS: DIVALPROEX (ER) 500 MG TAB PO ×2 (08:18→20:53)
[2018-12-01] MEDS: DUTASTERIDE 0.5 MG CAP PO (08:24)
[2018-12-01] MEDS: SOD CHLORIDE 0.9% 500 ML IV (11:12)
[2018-12-01] MEDS: QUETIAPINE 25 MG TAB PO ×2 (20:52→21:39)
[2018-12-01] MEDS: ATORVASTATIN 10 MG TAB PO (20:53)
[2018-12-01] MEDS: SENNA TAB PO (21:00)
[2018-12-01] MEDS: ACETAMINOPHEN 325 MG TAB PO (23:11)
[2018-12-02] MEDS: VANCOMYCIN HCL 250 MG/5ML POSYG PO ×3 (05:32→19:19)
[2018-12-02] MEDS: metroNIDAZOLE 500 MG TAB PO ×3 (05:32→20:59)
[2018-12-02] MEDS: LACTOBACILLUS RHAMNOSUS CAP PO ×2 (08:11→20:53)
[2018-12-02] MEDS: RALTEGRAVIR 400 MG TAB PO ×2 (08:11→20:53)
[2018-12-02] MEDS: DUTASTERIDE 0.5 MG CAP PO (08:11)
[2018-12-02] MEDS: DIVALPROEX (ER) 500 MG TAB PO ×2 (08:12→20:54)
[2018-12-02] MEDS: FAMOTIDINE 20 MG TAB PO (08:12)
[2018-12-02] MEDS: AMIODARONE 200 MG TAB PO ×2 (08:12→20:54)
[2018-12-02] MEDS: APIXABAN 5 MG TABLET PO ×2 (08:12→20:53)
[2018-12-02] MEDS: ABACAVIR/LAMIVUDINE TAB PO (08:59)
[2018-12-02] MEDS: METOPROLOL 25 MG TAB PO ×2 (09:00→20:53)
[2018-12-02] MEDS: ATORVASTATIN 10 MG TAB PO (20:53)
[2018-12-02] MEDS: SENNA TAB PO (21:00)
[2018-12-02] MEDS: QUETIAPINE 25 MG TAB PO (21:00)
[2018-12-03] MEDS: VANCOMYCIN HCL 250 MG/5ML POSYG PO ×5 (00:16→23:39)
[2018-12-03] MEDS: metroNIDAZOLE 500 MG TAB PO ×3 (05:46→21:10)
[2018-12-03 07:18] LABS: ANION GAP 9 (5-13); BLOOD UREA NITROGEN 21 mg/dl (7-20); CALCIUM 8.9 mg/dl (8.4-10.2); CARBON DIOXIDE 23 mmol/L (21-31); CHLORIDE 109 mmol/L (97-110); CREATININE 1.99 mg/dl (0.61-1.24); GLUCOSE 96 mg/dl (70-220); MAGNESIUM 1.8 mg/dl (1.7-2.5); PHOSPHORUS 4.1 mg/dl (2.5-4.9); POTASSIUM 4.5 mmol/L (3.5-5.1); SODIUM 141 mmol/L (135-144)
[2018-12-03] MEDS: DIVALPROEX (ER) 500 MG TAB PO ×2 (08:43→20:56)
[2018-12-03] MEDS: DUTASTERIDE 0.5 MG CAP PO (08:44)
[2018-12-03] MEDS: AMIODARONE 200 MG TAB PO ×2 (08:45→20:56)
[2018-12-03] MEDS: LACTOBACILLUS RHAMNOSUS CAP PO ×2 (08:49→20:57)
[2018-12-03] MEDS: RALTEGRAVIR 400 MG TAB PO ×2 (08:49→20:57)
[2018-12-03] MEDS: ABACAVIR/LAMIVUDINE TAB PO (08:49)
[2018-12-03] MEDS: APIXABAN 5 MG TABLET PO ×2 (08:49→20:57)
[2018-12-03] MEDS: FAMOTIDINE 20 MG TAB PO (08:49)
[2018-12-03] MEDS: METOPROLOL 25 MG TAB PO ×2 (09:00→21:11)
[2018-12-03] MEDS: ACETAMINOPHEN 325 MG TAB PO (13:03)
[2018-12-03] MEDS: traMADol 50 MG TAB PO (16:59)
[2018-12-03] MEDS: ATORVASTATIN 10 MG TAB PO (20:56)
[2018-12-03] MEDS: QUETIAPINE 25 MG TAB PO (20:57)
[2018-12-03] MEDS: SENNA TAB PO (21:00)
[2018-12-04] MEDS: metroNIDAZOLE 500 MG TAB PO (05:45)
[2018-12-04] MEDS: VANCOMYCIN HCL 250 MG/5ML POSYG PO ×2 (05:45→12:09)
[2018-12-04] MEDS: RALTEGRAVIR 400 MG TAB PO (08:25)
[2018-12-04] MEDS: FAMOTIDINE 20 MG TAB PO (08:26)
[2018-12-04] MEDS: DIVALPROEX (ER) 500 MG TAB PO (08:26)
[2018-12-04] MEDS: DUTASTERIDE 0.5 MG CAP PO (08:26)
[2018-12-04] MEDS: LACTOBACILLUS RHAMNOSUS CAP PO (08:26)
[2018-12-04] MEDS: APIXABAN 5 MG TABLET PO (08:26)
[2018-12-04] MEDS: METOPROLOL 25 MG TAB PO (08:27)
[2018-12-04] MEDS: AMIODARONE 200 MG TAB PO (08:27)
[2018-12-04] MEDS: ABACAVIR/LAMIVUDINE TAB PO (08:27)
== END 2018-12-04 12:45 | disposition home health service (06) | DRG 92 ==
LOC: VRC 22:00
PROC: F07Z5ZZ Bed Mobility Treatment (ICD-10-PCS; principal; 2018-11-25)
PROC: F08Z2ZZ Grooming/Personal Hygiene Treatment (ICD-10-PCS; 2018-11-25)
DX: G92 Toxic encephalopathy (principal); B20 Human immunodeficiency virus [HIV] disease; N17.9 Acute kidney failure, unspecified; N39.0 Urinary tract infection, site not specified; A04.72 Enterocolitis due to Clostridium difficile, not specified as recurrent; I48.92 Unspecified atrial flutter; R65.10 Systemic inflammatory response syndrome (SIRS) of non-infectious origin without acute organ dysfunction; I12.9 Hypertensive chronic kidney disease with stage 1 through stage 4 chronic kidney disease, or unspecified chronic kidney disease; N18.9 Chronic kidney disease, unspecified; N40.0 Benign prostatic hyperplasia without lower urinary tract symptoms; G47.9 Sleep disorder, unspecified; I48.0 Paroxysmal atrial fibrillation; R47.1 Dysarthria and anarthria; E83.42 Hypomagnesemia; D64.9 Anemia, unspecified; E83.9 Disorder of mineral metabolism, unspecified; I49.9 Cardiac arrhythmia, unspecified; R26.9 Unspecified abnormalities of gait and mobility; E78.5 Hyperlipidemia, unspecified; F41.9 Anxiety disorder, unspecified; F31.9 Bipolar disorder, unspecified
CPT/HCPCS: 70551; 80048; 80053; 81001; 83735; 83880; 84100; 85025; 86788; 86789; 87075; 87081; 87086; 87205; 93005; 97110; 97112; 97116; 97163; 97166; 97530; 97535